=== PATIENT | female | born 1995 | race American Indian/Alaskan Native ===

== ENCOUNTER 2017-10-25 22:27 | Emergency (ER) | payer OTHER ==
[2017-10-25 23:17] LABS: Basophils % (Auto) 0.3 % (0.0-1.8); Eosinophils # (Auto) 0.2 K/mm3 (0.0-0.4); Eosinophils % (Auto) 1.8 % (0.0-4.3); Hematocrit 42.3 % (30.3-42.9); Hemoglobin 13.3 gm/dl (10.1-14.3); Lymphocytes % (Auto) 28.9 % (13.4-35.0); Mean Corpuscular HGB Conc 31 % (30-34); Mean Corpuscular Volume 72 fl (79-97); Monocytes # (Auto) 0.6 K/mm3 (0.0-0.8); Platelet Count 268 K/mm3 (140-440); Red Blood Count 5.84 M/mm3 (3.65-5.03); Red Cell Distribution Width 16.4 % (13.2-15.2)
--- NOTE | 2017-10-25 23:18 | Emergency Department Report ---
History of Present Illness - General Chief Complaint: Overdose Stated Complaint: MH/SUICIDAL Time Seen by Provider: 10/25/17 23:07 Source: patient Mode of arrival: Ambulatory Limitations: No Limitations - History of Present Illness Initial Comments: Patient is 22 years old female with no significant past medical history brought by EMS for evaluation of drug overdose. H&H and stated that she took approximately 40 tablets of Motrin with Benadryl. Patient is not willing to saline she took it. Patient stated that she vomited immediately after she took the medicine. Patient stated that she depressed but denied any history of bipolar or schizophrenia. No visual or auditory hallucination no homicidal ideation. MD Complaint: intentional overdose -: Sudden, This evening Intent: unwilling to say How Overdose Was Discovered: called 911 Context: Intentional Overdose: other (does not want to say) Associated Symptoms: depression - Related Data Home Medications Medication Instructions Recorded Confirmed Last Taken No Known Home Medications [No 10/25/17 10/25/17 Unknown Reported Home Medications] Allergies Allergy/AdvReac Type Severity Reaction Status Date / Time No Known Allergies Allergy Unverified 10/25/17 22:50 ED Review of Systems ROS: Stated complaint: MH/SUICIDAL Other details as noted in HPI Comment: All other systems reviewed and negative Constitutional: denies: chills, diaphoresis, fever, weakness Respiratory: denies: cough, orthopnea, shortness of breath, SOB with exertion, SOB at rest, wheezing Cardiovascular: denies: chest pain, palpitations, dyspnea on exertion Gastrointestinal: vomiting. denies: abdominal pain, nausea, diarrhea, constipation, hematemesis, melena, hematochezia Genitourinary: denies: urgency, dysuria, frequency, hematuria Neurological: denies: headache, weakness, numbness, paresthesias ED Past Medical Hx - Past Medical History Previous Medical History?: No - Surgical History Past Surgical History?: No - Social History Smoking Status: Current Every Day Smoker Substance Use Type: Alcohol, Cocaine, Marijuana - Medications Home Medications: Home Medications Medication Instructions Recorded Confirmed Last Taken Type No Known Home Medications [No 10/25/17 10/25/17 Unknown History Reported Home Medications] ED Physical Exam - General Limitations: No Limitations General appearance: alert, in no apparent distress, anxious - Head Head exam: Present: atraumatic, normocephalic, normal inspection - Eye Eye exam: Present: normal appearance, PERRL - ENT ENT exam: Present: normal exam, normal orophraynx, mucous membranes moist - Neck Neck exam: Present: normal inspection, full ROM. Absent: tenderness, meningismus, lymphadenopathy - Respiratory Respiratory exam: Present: normal lung sounds bilaterally. Absent: respiratory distress, wheezes, rales, rhonchi, stridor, chest wall tenderness, accessory muscle use, decreased breath sounds, prolonged expiratory - Cardiovascular Cardiovascular Exam: Present: regular rate, normal rhythm, normal heart sounds - GI/Abdominal GI/Abdominal exam: Present: soft, normal bowel sounds. Absent: distended, tenderness, guarding, rebound, rigid, organomegaly, mass, bruit, pulsatile mass , hernia - Extremities Exam Extremities exam: Present: normal inspection, full ROM, normal capillary refill. Absent: tenderness, pedal edema, joint swelling, calf tenderness - Back Exam Back exam: Present: normal inspection. Absent: CVA tenderness (L), muscle spasm , paraspinal tenderness - Neurological Exam Neurological exam: Present: alert, oriented X3, CN II-XII intact, normal gait, reflexes normal. Absent: motor sensory deficit - Psychiatric Psychiatric exam: Present: depressed, anxious - Skin Skin exam: Present: warm, intact, normal color ED Course Vital Signs 10/25/17 10/25/17 10/25/17 22:34 22:45 22:50 Temperature 97.8 F Pulse Rate 110 H 109 H Respiratory 45 H 22 Rate Blood Pressure 150/100 156/101 150/100 O2 Sat by Pulse 100 100 Oximetry 10/25/17 10/25/17 10/25/17 23:00 23:16 23:30 Temperature Pulse Rate 102 H 105 H 90 Respiratory 26 H 26 H 19 Rate Blood Pressure 156/101 143/95 O2 Sat by Pulse 100 100 100 Oximetry 10/25/17 10/26/17 10/26/17 23:46 00:00 00:16 Temperature Pulse Rate 91 H 78 Respiratory 25 H 15 21 Rate Blood Pressure 143/95 141/87 141/87 O2 Sat by Pulse 100 100 100 Oximetry 10/26/17 10/26/17 10/26/17 00:30 00:46 01:00 Temperature Pulse Rate 75 80 Respiratory 33 H 31 H 24 Rate Blood Pressure 137/86 137/86 136/80 O2 Sat by Pulse 99 100 100 Oximetry 10/26/17 10/26/1710/26/18 01:16 01:30 01:46 Temperature Pulse Rate 103 H 73 89 Respiratory Rate Blood Pressure 136/80 136/80 115/73 O2 Sat by Pulse 98 100 100 Oximetry 10/26/17 10/26/17 02:00 02:13 Temperature Pulse Rate 71 Respiratory 18 Rate Blood Pressure 115/73 O2 Sat by Pulse 99 100 Oximetry - Reevaluation(s) Reevaluation #1: 10/25/17 23:23 Poison control consulted and advised supportive care. ED Medical Decision Making - Lab Data Result diagrams: 10/25/17 23:05 10/25/17 23:05 Critical care attestation.: If time is entered above; I have spent that time in minutes in the direct care of this critically ill patient, excluding procedure time. ED Disposition Clinical Impression: Drug overdose, intentional, Suicide attempt Disposition: [id number]/TX-[id number] PSY HOSP/PSY UNIT Is pt being admited?: No Condition: Stable
[2017-10-25 23:27] LABS: Mean Corpuscular Hemoglobin 23 pg (28-32)
[2017-10-25 23:42] LABS: BUN/Creatinine Ratio 16; Blood Urea Nitrogen 14 mg/dL (7-17); Calcium 8.9 mg/dL (8.4-10.2); Hemolysis Index 0
[2017-10-26 00:22] LABS: Bilirubin,Urine NEG (Negative); Blood,Urine NEG (Negative); Color,Urine Straw (Yellow); Mucus,Urine FEW /HPF; Protein,Urine <15 mg/dL mg/dL (Negative); Urobilinogen,Urine < 2.0 mg/dL (<2.0)
[2017-10-26 00:34] LABS: Amphetamine Screen,Urine PRESUMPTIVE NEGATIVE; Benzodiazepines Screen,Urine PRESUMPTIVE NEGATIVE; Cannabinoid Screen,Urine PRESUMPTIVE NEGATIVE; Cocaine Screen,Urine PRESUMPTIVE NEGATIVE; Methadone Screen,Urine PRESUMPTIVE NEGATIVE; Opiate Screen,Urine PRESUMPTIVE NEGATIVE
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
[2017-10-27] MEDS ORDERED: VISTARIL PO PRN (13:23)
[2017-10-27] MEDS: ZOLOFT PO SCH (14:14)
[2017-10-28] MEDS ORDERED: TYLENOL ONE (04:53)
[2017-10-28] MEDS ORDERED: TYLENOL PO ONE (04:54)
[2017-10-28] MEDS: ZOLOFT PO SCH (10:15)
--- NOTE | 2017-10-28 13:04 | Progress Note ---
Subjective - Reason for Consult Consult date: 10/28/17 Reason for consult: Psychiatry Follow-up - Chief Complaint Chief complaint: "I had a better night" 22 years old female with no significant past medical history brought by EMS for evaluation of drug overdose. Today the patient is calm and cooperative during the assessment. She stated that she should have made a better decision other than take multiple Motrin pills to get high. She stated that was a bad choice. She denies SI/HI's and AVH's. She denies any side effects of her medications. Mental Status Exam - Vital signs Last Vital Signs Temp 98.9 F 10/28/17 10:00 Pulse 101 H 10/28/17 10:00 Resp 18 10/28/17 10:00 BP 119/98 10/28/17 10:00 Pulse Ox 99 10/28/17 10:00 - Exam Narrative exam: MSE: Appearance: calm, cooperative Behavior: regular eye contact Speech: regular rate and tone Mood: "okay" Affect: congruent to mood Thought Process: circumstantial Thought Content: denies SI/HI's and AVH's Motor Activity: ambulatory Cognition: A/O x3 Insight: variable Judgment: variable Assessment and Plan Impression: MDD. JANE. PTSD. Today the patient is calm and cooperative during the assessment. The patient overdosed on Motrin pills. UDS negative. DDx: R/O Bipolar DO Recommendation/Plan: Continue 1013 with placement to inpatient psy services. Continue Zoloft 50 mg PO daily for depression/PTSD/anxiety and Vistaril 25 mg PO Q6hrs PRN for acute anxiety. Discussed possible suicidality/medication induced wendy reference Zoloft.
[2017-10-29] MEDS: ZOLOFT PO SCH (12:08)
--- NOTE | 2017-10-29 16:51 | Progress Note ---
Subjective - Reason for Consult Consult date: 10/29/17 Reason for consult: follow up - Chief Complaint Chief complaint: "I am on the wrong medicines." 22 years old female with no significant past medical history brought by EMS for evaluation of drug overdose. Today the patient is irritable and tangential. She is upset with waiting on placement. She denies SI/HI's and AVH's. She complains of needing to move and being shaky after taking vistaril and being hyper after taking zoloft. She spent most of the interview expressing her dissatisfaction with her stay in the hospital. She mentioned taking ibuprofen pm when she overdosed. Mental Status Exam - Vital signs Last Vital Signs Temp 97.8 F 10/29/17 07:34 Pulse 86 10/29/17 07:34 Resp 18 10/29/17 07:34 BP 117/81 10/29/17 07:34 Pulse Ox 99 10/29/17 07:34 - Exam Narrative exam: MSE: Appearance: calm, cooperative Behavior: regular eye contact Speech: regular rate and tone Mood: irritable Affect: congruent to mood Thought Process: circumstantial,tangential Thought Content: denies SI/HI's and AVH's Motor Activity: ambulatory Cognition: A/O x3 Insight: variable Judgment: variable Assessment and Plan Impression: MDD. JANE. PTSD. Today the patient is calm and cooperative during the assessment. The patient overdosed on Motrin pm pills. UDS negative. DDx: R/O Bipolar DO Recommendation/Plan: Continue 1013 with placement to inpatient psy services. Discontinue meds due to patient complaint of side effects.
--- NOTE | 2017-10-30 16:05 | Progress Note ---
Subjective - Reason for Consult Consult date: 10/30/17 Reason for consult: follow up - Chief Complaint Chief complaint: "I was trying to get high." 22 years old female with no significant past medical history brought by EMS for evaluation of drug overdose. Today the patient less irritable but tangential. She expressed concern about her care and plans to file a grievance. She denies SI/HI's and AVH's. She is no longer on zoloft and vistaril and reports no further complaints of shaking. Mental Status Exam - Vital signs Last Vital Signs Temp 98.7 F 10/30/17 08:29 Pulse 87 10/30/17 08:29 Resp 20 10/30/17 11:51 BP 125/73 10/30/17 08:29 Pulse Ox 100 10/30/17 11:51 - Exam Narrative exam: MSE: Appearance: calm, cooperative Behavior: regular eye contact Speech: regular rate and tone Mood: irritable Affect: congruent to mood Thought Process: circumstantial,tangential Thought Content: denies SI/HI's and AVH's Motor Activity: ambulatory Cognition: A/O x3 Insight: variable Judgment: variable Assessment and Plan Impression: MDD. JANE. PTSD. Today the patient is calm and cooperative during the assessment. The patient overdosed on Motrin pm pills. UDS negative. DDx: R/O Bipolar DO Recommendation/Plan: Continue 1013 with placement to inpatient psy services. Meds discontinued yesterday due to patient complaint of side effects.
[2017-10-30] MEDS: ZOVIRAX PO ONE ×2 (17:53→18:41)
--- NOTE | 2017-10-31 09:10 | Progress Note ---
Subjective - Reason for Consult Consult date: 10/31/17 Reason for consult: Psycchiatry Follow-up - Chief Complaint Chief complaint: "Good morning" 22 years old female with no significant past medical history brought by EMS for evaluation of drug overdose. Today the patient is calm and cooperative during the assessment. She expressed that she is ready to be transferred to a mental health facility and move on with her life. She stated that her care at the hospital has not been pleasant. She denies SI/HI's and AVH's. She denies further complaints of shaking. Mental Status Exam - Vital signs Last Vital Signs Temp 98.4 F 10/30/17 20:46 Pulse 68 10/30/17 20:46 Resp 16 10/31/17 08:56 BP 110/85 10/30/17 20:46 Pulse Ox 100 10/31/17 08:56 - Exam Narrative exam: MSE: Appearance: calm, cooperative Behavior: regular eye contact Speech: regular rate and tone Mood: "okay" Affect: congruent to mood Thought Process: circumstantial Thought Content: denies SI/HI's and AVH's Motor Activity: ambulatory Cognition: A/O x3 Insight: fair Judgment: fair Assessment and Plan Impression: MDD. JANE. PTSD. Today the patient is calm and cooperative during the assessment. The patient overdosed on Motrin pills. UDS negative. DDx: R/O Bipolar DO Recommendation/Plan: Continue 1013 with placement to inpatient psy services. The patient is no longer taking Zoloft and Vistaril because of side effects ( shaking).
--- NOTE | 2017-11-01 11:26 | Progress Note ---
Subjective - Reason for Consult Consult date: 11/01/17 Reason for consult: Psychiatry Follow-up - Chief Complaint Chief complaint: "Hello" 22 years old female with no significant past medical history brought by EMS for evaluation of drug overdose. Today the patient is calm and cooperative during the assessment. Today the patient was emotional about wanting to leave the facility. After discussing the process with the patient, she calmed down. She was informed that her action prior to her admission are taken very seriously, she stated, "I understand." She denies SI/HI's and AVH's. Per collateral information from her aunt Rubi Mares at [phone] stated that the patient has never attempted suicide in the past. She stated that her niece struggles with depression and anxiety. Ms Mares could not confirm or deny that her niece tried to kill herself prior to her admission. The patient denies SI/HI's and AVH 's. Mental Status Exam - Vital signs Last Vital Signs Temp 98.2 F 11/01/17 08:33 Pulse 92 H 11/01/17 08:33 Resp 16 11/01/17 08:33 BP 117/79 11/01/17 08:33 Pulse Ox 100 11/01/17 08:33 - Exam Narrative exam: MSE: Appearance: calm, cooperative Behavior: regular eye contact Speech: regular rate and tone Mood: "okay" Affect: congruent to mood Thought Process: circumstantial Thought Content: denies SI/HI's and AVH's Motor Activity: ambulatory Cognition: A/O x3 Insight: fair Judgment: fair Assessment and Plan Impression: MDD. JANE. PTSD. Today the patient is calm and cooperative during the assessment. The patient overdosed on Motrin pills. UDS negative. DDx: R/O Bipolar DO Recommendation/Plan: The patient's 1013 was extended and inpatient psy services placement is ongoing. The patient is no longer taking Zoloft and Vistaril because of side effects (shaking).
[2017-11-02] MEDS: ZOVIRAX PO SCH (10:45)
[2017-11-03] MEDS: ZOVIRAX PO SCH (10:36)
[2017-11-03 11:13] VITALS: BP 106/62
--- NOTE | 2017-11-03 11:20 | Progress Note ---
Subjective - Reason for Consult Consult date: 11/03/17 Reason for consult: Psychiatry Follow-up - Chief Complaint Chief complaint: "I have learned my lesson" 22 years old female with no significant past medical history brought by EMS for evaluation of drug overdose. Today the patient is calm and cooperative during the assessment. Per collateral information from the patient's boyfriend Laron Yang at [phone] he stated that the patient told him that she took the multiple Motrin pills to "get high." He stated that he will pick the patient up when she is discharged. The patient stated that she made a huge mistake by taking multiple Motrin pills. The patient wants a referral for outpatient rehab/ psy services when discharged. She stated that she would like to speak with a therapist about her life. She denies SI/HI's and AVH's. Mental Status Exam - Vital signs Last Vital Signs Temp 98.4 F 11/03/17 08:21 Pulse 61 11/03/17 11:03 Resp 18 11/03/17 11:03 BP 106/62 11/03/17 11:03 Pulse Ox 99 11/03/17 11:03 - Exam Narrative exam: MSE: Appearance: calm, cooperative Behavior: regular eye contact Speech: regular rate and tone Mood: "okay" Affect: congruent to mood Thought Process: logical Thought Content: denies SI/HI's and AVH's Motor Activity: ambulatory Cognition: A/O x3 Insight: appropriate Judgment: appropriate Assessment and Plan Impression: MDD. JANE. PTSD. Today the patient is calm and cooperative during the assessment. The patient is no threat to self. DDx: R/O Bipolar DO I. This screening and assessment is based on information collected from the following sources: II. SUICIDE RISK SCREENING (within last 30 days): A.) Suicidal thoughts/behaviors: The patient denies SUICIDE RISK ASSESSMENT III. FACTORS THAT INCREASE RISK: A.) Demographic and Substance Use Factors: Yes (Marijuana) B.) Current/Recent Factors (within past 3 months): Psychosocial/Environmental Factors: Stressed with Life Stressors Physical Illness: None Cognitive/Psychological Factors: None C.) Historical Factors: None D.) Diagnostic/Symptom/Treatment Factors: None E.) Acute Risk Factor Severity (DESC; MILD/MOD/SEVERE): Mild Other factors for this individual that increase risk: None IV. FACTORS THAT DECREASE RISK: Resilience/Protective Factors: Patient want to decrease her stress Other factors for this individual that decrease risk: Patient denies a desire to harm self V. Clinician's Formulation of Risk and Determination of level of Care: This is a 22-year-old AA female who stated that she wanted to get high, so she took multiple Motrin pills. She stated that her stress level was elevated and didn't have marijuana to smoke to lower her stress, so she took multiple Motrin pills. She stated that she is aware of her actions and adamant that she will not take multiple pills again. She stated that she will follow-up with outpatient/rehab services once discharged. Since being hospitalized the patient has consistently denied the desire to harm herself. Additionally, she has become insightful about how to better address her current issues. Patient is not impaired by substance. She is able to take care of her ADLs and is not at imminent risk of harm to self or others. Consequently, it is the opinion of the treatment team that the patient is at low risk of suicide and does not meet criteria to continue an involuntary psychiatric hold. Estimation of Imminent Risk: Low due to the above explanation. Determination of Level of Care based on Suicide Risk: Outpatient follow-up. Narrative description of clinical reasoning. (This must be completed on all patients): . Plan and Interventions based on Suicide Risk: This patient will likely be stepped down to an outpatient mental health center in the community upon discharge and follow-up within 7 days of her discharge from the hospital. VII. Discharge/After Hours Support Plan: Patient can return back to the ER, call 911 or crisis line if symptoms of depression, anxiety, suicidality return. Recommendation/Plan: Rescind 1013. Discussed with the patient the importance to take medication as prescribed. Safety Contract completed with the patient. The patient can follow up with [facility] for outpatient psy/rehab services.
--- NOTE | 2017-11-04 00:27 | Progress Note ---
Subjective - Reason for Consult Consult date: 11/02/17 Reason for consult: Psychiatric Follow-up Evaluation - Chief Complaint Chief complaint: "I'm doing well." Patient is a 22 years old female with no significant past medical history brought in by EMS for evaluation of drug overdose. Today patient presents calm , cooperative, and compliant during the assessment. Prior to hospitalization I was on the phone with my best friend when she called the police because I misused OTC medications. EMS and the police assumed it was an attempted suicide. Although, patient reports a hx of depression she does not believe medication is necessary. She denies anhedonia, decrease sleep, decrease appetite, decrease enerrgy and feelings of hopelessness. SHe denies SI/HI, A/VH , and delusions. Patient is requesting outpatient therapy/psychiatric follow- up. Mental Status Exam - Vital signs Last Vital Signs Temp 98.4 F 11/03/17 08:21 Pulse 61 11/03/17 11:03 Resp 18 11/03/17 11:03 BP 106/62 11/03/17 11:03 Pulse Ox 99 11/03/17 11:03
== END 2017-11-03 16:50 ==
LOC: EEVIPCON 22:27 → ED 22:27
DX: T39.312A Poisoning by propionic acid derivatives, intentional self-harm, initial encounter (principal); T45.0X2A Poisoning by antiallergic and antiemetic drugs, intentional self-harm, initial encounter; F32.9 Major depressive disorder, single episode, unspecified; F41.1 Generalized anxiety disorder; F43.10 Post-traumatic stress disorder, unspecified; F17.200 Nicotine dependence, unspecified, uncomplicated; F12.10 Cannabis abuse, uncomplicated; F14.10 Cocaine abuse, uncomplicated; Z79.899 Other long term (current) drug therapy; Y92.89 Other specified places as the place of occurrence of the external cause
CPT/HCPCS: 36415; 80048; 80307; 81001; 84703; 85025; 93005; 93010; 99284; G0480; 80320; Q0177